=== PATIENT | male | born 1985 | race African-American/Black ===

== ENCOUNTER 2020-06-28 07:28 | Emergency (ER) | payer SELFPAY ==
[~2020-06-28] VITALS: Ht 195.6 cm; Wt 74.8 kg
[2020-06-28 07:31] VITALS: BP 134/83
--- NOTE | 2020-06-28 07:40 | NUR ---
PT WAS ABLE TO AMBULATE TO BED 11 @ 0740
--- NOTE | 2020-06-28 07:47 | NUR ---
34 Y/O M BIB SELF FROM HOME, PATIENT PRESENTS TO ED WITH WHAT HE STATES ARE EXTERNAL HEMMORRHOIDS. PT STATES HE WAS SEEN BY A DR AND WAS TOLD HE HAS HAD THEM FOR 4-5 YEARS, DENIES ANY BLEEDING OR PAIN, MORE DISCOMFORT DURING BOWEL MOVEMENTS. DENIES N/V/D; SKIN IS PINK/WARM/DRY; AAOX4 WITH EVEN AND STEADY GAIT; LUNGS CLEAR BL; HR EVEN AND REGULAR; PT DENIES ANY FEVER, CP, SOB, OR COUGH AT THIS TIME; PATIENT STATES PAIN OF 0/10 AT THIS TIME; VSS; PATIENT POSITIONED FOR COMFORT; HOB ELEVATED; BEDRAILS UP X2; BED DOWN. ER MD MADE AWARE OF PT STATUS. PMH: NONE MEDS: NONE NKA
--- NOTE | 2020-06-28 07:48 | NUR ---
ERMD IN ROOM TALKING WITH PT
[2020-06-28] MEDS ORDERED: PHEN28OI6 TP (08:01)
[2020-06-28 08:10] VITALS: BP 134/83
--- NOTE | 2020-06-28 08:13 | NUR ---
Patient discharged with v/s stable. Written and verbal after care instructions given and explained. Patient alert, oriented and verbalized understanding of instructions. Ambulatory with steady gait. All questions addressed prior to discharge. ID band removed. Patient advised to follow up with PMD. Rx of PHENYLEPH given. Patient educated on indication of medication including possible reaction and side effects. Opportunity to ask questions provided and answered.
== END 2020-06-28 08:13 | disposition home or self-care (01) ==
LOC: MED 07:28
DX: K64.8 Other hemorrhoids (principal)
CPT/HCPCS: 99283